=== PATIENT | female | born 1970 | race Caucasian/White ===

== ENCOUNTER 2016-10-07 20:05 | Emergency (ER) | payer OTHER ==
[~2016-10-07] VITALS: Ht 159.4 cm; Wt 77.3 kg
[~2016-10-07 20:05] MED LIST: CEPH500C PO; HYDR-4003 PO
[2016-10-07 20:15] VITALS: BP 111/76; PULSE 89; RESP 20; O2SAT 97
--- NOTE | 2016-10-07 21:37 | ED.REPORT ---
HPI-Back Pain 40 and Over Date of Service Oct 07, 2016 ED Provider: Fuad Gary MD Patient is a 46 year old homeless female with a history of chronic back pain and IVDA who presents to the ED via EMS complaining of low back pain after she was found sleeping on the ground intoxicated. Patient states that she has been falling frequently due to her chronic back pain. She reports that her legs become weak and "give out on her", causing her to fall to the ground. This aggravates her chronic back pain. She denies any numbness in her extremities, bowel dysfunction, or bladder dysfunction. Patient was seen in the ED on September 19 for the same complaint and received a Lumbar MRI. Patient was found to have multilevel degenerative disc disease, facet arthropathy, canal stenosis, and neural foraminal narrowing. Neurosurgery consulted believed that the patient's complaints at that time were mostly due to pain rather than a true neurologic impairment. The patient states that she has been homeless for for several months and that she was staying at a friend's house until recently. Nursing Notes Stated Complaint: ALCOHOL INTOXICATION,BACK PAIN Chief Complaint: Back Pain or Injury Nursing Notes Reviewed: Yes Allergies: Coded Allergies: aspirin (Verified Allergy, Unknown, 09/19/16) erythromycin base (Verified Allergy, Unknown, 09/19/16) ibuprofen (Verified Allergy, Unknown, 09/19/16) metoclopramide (Verified Allergy, Unknown, 09/19/16) prochlorperazine (Verified Allergy, Unknown, 09/19/16) Scheduled Cephalexin (Cephalexin) 500 Mg Capsule 500 MG PO TID Scheduled PRN Hydrocodone-Acetaminophen 5-325 mg (Hydrocodone-Acetaminophen 5-325 mg) 1 Each Tablet 1 TABLET PO Q4H PRN PRN For Pain General Time Seen by MD: 21:33 Chief Complaint Back pain Hx Obtained From: Patient Arrived By: Ambulance Sudden in Onset?: No Onset Occurred: More than a week ago... Quality: Painful Severity: Current: Moderate Severity: Maximum: Severe Recent Healthcare: Recent doctor visit Similar Sx Previous: Yes Past Medical History Past Medical History Notes: Lumbar MRI, Sep 19 2016 1. Image quality severely limited by patient motion artifact. 2. Convex left scoliosis. 3. Multilevel degenerative disc disease. 4. Multilevel facet arthropathy. 5. Severe L4-L5 central canal stenosis. Moderate to severe L3-L4 central canal narrowing. Moderate L2-L3 central canal narrowing. 6. Moderate bilateral L2-L3, L4-L5 and L5-S1 neuroforaminal narrowing. Mild right and moderate left L3-L4 neural foraminal narrowing. Dictated by: Kristen Flor MD, PhD on 09/19/2016 at 18:01 Approved by: Kristen Flor MD, PhD on 09/19/2016 at 18:01 Past Medical History asthma Hep C, has been treated per pt in the past IVDA chronic back pain Past Surgical History adenoids Reports: , Tonsillectomy Smoking History Current Every Day Smoker Social History Drug Use: IV drugs, Meth, THC Other Social History: Local resident, Homeless Ambulatory Status Independent Review of Systems Musculoskeletal: Reports: Back pain, Extremity pain Neurologic: Reports: Weakness, Denies: Bladder dysfunction, Bowel dysfunction, Numbness Complete sys rev & neg: except as marked. Physical Exam Physical Exam Notes: Initial Vital Signs Vital Signs (First) Date Time Temp Pulse Resp B/P Pulse Ox O2 Delivery O2 Flow Rate FiO2 10/07/16 20:15 36.4 89 20 111/76 97 Room Air Initial VS: Reviewed Head / Eyes: Atraumatic, Normocephalic, PERRL ENT: Conjunctiva normal, No scleral icterus Neck: Supple, Full range of motion Skin: Warm, Dry, No cyanosis Psychiatric: Mood/affect normal, Behavior normal, Normal thought content General/Constitutional: Awake, Alert Behavior: Positive: Appears intoxicated Respiratory / Chest: Breath sounds NL, Breath sounds = bilat, No respiratory distress, No rales, No rhonchi, No wheezing Cardiovascular: Heart rate NL, Regular rhythm, No murmurs Abdomen: Soft, Non-tender Back: Atraumatic tender to palpation of the lower back, even to light touch. Disproportionate to the severity of the complaint. Neurologic: Oriented X3, Speech NL, No motor deficits (moving lower extremities normally), No sensory deficits, CN II - XII intact, Reflexes equal bilat Lower Extremity / Pelvis / MS: Neurologic intact, Vascular intact scabes on bilateral knees, several days old Upper Extremity / MS: No deformity, Neurologic intact, Vascular intact Interpretation & Diagnostics Interpretation & Diagnostics: Breathalyzer @ intake: 0.184 Urine Dip: Positive for barbituates, marijuana, and TCAs Lab Results Interpretation Result Diagram: 10/07/16 22110/[id number] Test 10/07/16 22:11 10/07/16 22:35 White Blood Count 11.6th/mm3 (3.8-10.1) Red Blood Count 4.42mil/mm3 (3.90-5.20) Hemoglobin 13.4g/dL (12.0-15.6) Hematocrit 40.7% (35.0-46.0) Mean Corpuscular Volume 92.1fL (81-100) Mean Corpuscular Hemoglobin 30.3pg (27.0-35.0) Mean Corpuscular Hemoglobin Concent 32.9% (32.0-37.0) Red Cell Distribution Width 14.3% (12.3-15.4) Platelet Count 428bil/L (150-400) Neutrophils (%) (Auto) 41.8% (40-74) Lymphocytes (%) (Auto) 48.0% (14-46) Monocytes (%) (Auto) 6.7% (4-12) Eosinophils (%) (Auto) 2.7% (0-5) Basophils (%) (Auto) 0.5% (0-3) Erythrocyte Sedimentation Rate 7mm/hr (0-32) Prothrombin Time 9.6sec (8.1-12.5) Prothromb Time International Ratio 0.90ratio Activated Partial Thromboplast Time 23.8sec (22.8-33.0) Sodium Level 141mEq/L (134-144) Potassium Level 4.7mEq/L (3.5-5.2) Chloride Level 102mEq/L (97-108) Carbon Dioxide Level 27mmol/L (18-29) Blood Urea Nitrogen 13mg/dL (6-24) Creatinine 0.73mg/dL (0.57-1.00) Estimat Glomerular Filtration Rate 124mL/min (>59) Glucose Level 90mg/dL (60-99) Lactic Acid Level 1.7mmol/L (0.4-2.0) Calcium Level 8.3mg/dL (8.5-10.1) Phosphorus Level 4.9mg/dL (2.5-4.9) Magnesium Level 2.5mg/dL (1.6-2.6) Total Bilirubin 0.2mg/dL (0.0-1.2) Aspartate Amino Transf (AST/SGOT) 34U/L (0-50) Alanine Aminotransferase (ALT/SGPT) 33U/L (0-32) Alkaline Phosphatase 83U/L (25-150) Total Protein 7.4g/dL (6.4-8.4) Albumin 4.0g/dL (3.4-5.0) Lipase 44U/L (13-60) Urine Color Yellow (YELLOW) Urine Appearance Hazy (CLEAR,HAZY) Urine pH 6.5 (5.0-8.0) Urine Specific [place] 1.020 (1.003-1.035) Urine Protein Negativemg/dL (NEG,TRACE) Urine Glucose (UA) Negativemg/dL (NEGATIVE) Urine Ketones Negativemg/dL (NEGATIVE) Urine Occult Blood Negative (NEGATIVE) Urine Nitrite Negative (NEGATIVE) Urine Bilirubin Negative (NEGATIVE) Urine Urobilinogen Normalmg/dL (NORMAL) Urine Leukocyte Esterase Negative (NEGATIVE) Urine RBC 0-2/hpf (0-2) Urine WBC 0-5/hpf (0-5) Urine Epithelial Cells Few/hpf (NONE-MOD) Urine Crystals None seen (NONE SEEN) Urine Bacteria Few/hpf (NONE-FEW) Urine Hyaline Casts None/lpf (NONE) Urine Granular Casts None seen (NONE SEEN) Urine Waxy Casts None seen (NONE SEEN) Urine Red Blood Cell Casts None seen (NONE SEEN) Urine White Blood Cell Casts None seen (NONE SEEN) Urine Mucus None seen (None Seen) Urine Trichomonas None seen (NONE SEEN) Urine Yeast None (NONE SEEN) Urinalysis Comment None Urine Culture Reflexed Not indicated X-Ray Chest Interpretation Chest Xray Interpretation: Impression: Scoliosis. No acute process. View: Portable Interpretation / Wet Read by: Wet read ED physician X-Ray Interpretation Xray Interpretation: Impression: Scoliotic changes. Sclerosis posterior segments of lower segments, impinging on neural foramina. No acute changes seen. Study Performed: Lumbar Spine X-ray Interpretation / Wet Read by: Wet read ED physician Re-Eval/Medical Decision Med Decision/Clinical Course 46-year-old chronic alcoholism and polysubstance abuse presents ostensibly of back pain. The actual progression was she was awakened on the street while intoxicated and sleeping, and upon arrival of medics evaluated her, complaining of back pain and requested transport here. She is indeed intoxicated but has resolved over observation here. She was provided with Tylenol for her back pain. She refuses admission to [facility], and is discharged now in stable condition. Source of Hx: Old records Re-Evaluation/Progress #1: Time of Eval: 00:26 Patient Status: Condition improved Re-Evaluation/Progress Note: Rechecked the patient. She was informed of the results of her x-rays and labs. Patient was asked if she would like to go [facility] to detox from alcohol. Patient agrees with this plan and will speak to staff at [facility]. Re-Evaluation/Progress #2: Time of Eval: 01:43 Re-Evaluation/Progress Note: Patient is now below the legal limit. Patient understands and agrees with the plan to be discharged. Discharge instructions and follow-up discussed. All questions were addressed. Return to the ED warnings given. Consultation #1: Call Returned at: 00:24 Note: Spoke with [facility]. Will put them in contact with the patient for prescreening. Consultation #2: Call Returned at: 01:35 Note: Spoke with [facility]. The patient started prescreening but then became too tired to continue. She ended the process and the patient does not have a bed coordinated. Counseled Regarding: Diagnosis, Lab results, Need for follow-up, When/why to return to ED Discharge & Departure Impression: Primary Impression: Alcohol abuse Additional Impressions: Polysubstance abuse Low back strain Encounter type: initial encounter Qualified Code: S39.012A - Strain of muscle, fascia and tendon of lower back, initial encounter Homelessness Disposition: Home Discharge Condition All VS Reviewed: Yes Condition: Stable Patient Instructions: Abuse of Alcohol (ED), Alcohol Withdrawal (ED) Additional Instructions: [facility] might be an alternative for you, but you will have to cooperate with screening and cooperate with the staff. You may call there daily for a bed. The number is [phone] We can provide an Ativan taper for you if you get a bed. Referrals: [facility] Scribe Attestation Portions of this note were transcribed by Tressa Berrios. I, Dr. Gary personally performed the history, physical exam and medical decision-making; I reviewed and confirmed the accuracy of the information in the transcribed note. Signed by: Brooklynn Knowles, 10/08/2016 0145 Fuad Gary MD Oct 07, 2016 21:37 Tressa Berrois Oct 07, 2016 22:01
[2016-10-07] MEDS ORDERED: 0.9% Sodium Chloride 1,000 ML IV ONE (21:42)
[2016-10-07 22:23] LABS: BASOPHILS % (AUTO) 0.5 % (0-3); EOSINOPHILS % (AUTO) 2.7 % (0-5); MONOCYTES % (AUTO) 6.7 % (4-12); Mean Corpuscular Hemoglobin 30.3 pg (27.0-35.0); Mean Corpuscular Volume 92.1 fL (81-100); NEUTROPHILS % (AUTO) 41.8 % (40-74); Platelet Count 428 bil/L (150-400)
[2016-10-07 22:47] LABS: Magnesium 2.5 mg/dL (1.6-2.6); Phosphorus 4.9 mg/dL (2.5-4.9)
[2016-10-07 22:51] LABS: ERYTHROCYTE SEDIMENTATION RATE 7 mm/hr (0-32)
[2016-10-07 23:03] LABS: INR 0.9 ratio
[2016-10-07 23:05] VITALS: BP 97/62; PULSE 78; RESP 16; O2SAT 96
[2016-10-07 23:35] LABS: APPEARANCE,URINE HAZY (CLEAR,HAZY); COLOR,URINE YELLOW (YELLOW); OCCULT BLOOD,URINE NEGATIVE (NEGATIVE); PH,URINE 6.5 (5.0-8.0); UROBILINOGEN,URINE NORMAL (NORMAL)
[2016-10-08 01:58] VITALS: BP 132/90; PULSE 86; RESP 16; O2SAT 92
--- NOTE | 2016-10-08 10:04 | DRSVH ---
PROCEDURE: X-RAY LUMBAR SPINE, 2 OR 3 VIEW INDICATIONS: falls, low back pain TECHNIQUE: 4 views of the lumbar spine were acquired. COMPARISON: None. FINDINGS: Bones: 5 [id number] vertebrae are present. Moderate leftward curvature. Mild multilevel disc d egeneration and lower lumbar spine facet joint arthropathy. No vertebral body compression fractures. No suspicious bony lesions. Soft tissues: Overlying bowel gas pattern is normal. No suspicious soft tissue calcifications. IMPRESSION: Mild multilevel degenerative change. Dictated by: Alcides URIBE Interpreted: Kristen Flor MD on 10/08/2016 at 10:04 Transcribed by: ZAHIDA on 10/08/2016 at 10:04 Approved by: Kristen Flor MD, PhD on 10/08/2016 at 16:55
--- NOTE | 2016-10-08 10:05 | DRSVH ---
PROCEDURE: X-RAY CHEST ONE VIEW, PORTABLE ([id number]) INDICATIONS: weakness, falls TECHNIQUE: One view of the chest was acquired. COMPARISON: None. FINDINGS: Surgical changes and devices: None. Lungs and pleura: No pleural effusions or pneumothorax. Lungs are clear. Mediastinum: Mediastinal contours appear normal. Heart size is normal. Bones and chest wall: No suspicious bony lesions. Overlying soft tissues appear unremarkable. Mild rightward curvature of the lower thoracic spine. IMPRESSION: No acute cardiopulmonary disease. Dictated by: Alcides Zuniga [facility] Interpreted: Kristen Flor MD on 10/08/2016 at 10:04 Transcribed by: ZAHIDA on 10/08/2016 at 10:04 Approved by: Kristen Flor MD, PhD on 10/08/2016 at 16:55
== END 2016-10-08 02:00 | disposition home or self-care (01) ==
LOC: SED 20:05 → EDBD 20:05 → SED 10-08 02:00
DX: F10.20 Alcohol dependence, uncomplicated (principal); F19.20 Other psychoactive substance dependence, uncomplicated; S39.012A Strain of muscle, fascia and tendon of lower back, initial encounter; W18.30XA Fall on same level, unspecified, initial encounter; Y92.410 Unspecified street and highway as the place of occurrence of the external cause; Y93.89 Activity, other specified; Y99.8 Other external cause status; M54.5 Low back pain; G89.29 Other chronic pain; M51.36 Other intervertebral disc degeneration, lumbar region; M12.88 Other specific arthropathies, not elsewhere classified, other specified site; M48.06 Spinal stenosis, lumbar region; J45.909 Unspecified asthma, uncomplicated; F17.200 Nicotine dependence, unspecified, uncomplicated; Z59.0 Homelessness
CPT/HCPCS: 36415; 71010; 72100; 80053; 81000; 82075; 83605; 83690; 83735; 84100; 85025; 85610; 85651; 85730; 87040; 96360; 99285; J7030